=== PATIENT | female | born 1985 | race Caucasian/White ===

== ENCOUNTER 2017-04-18 09:13 | Outpatient (CLI) | payer BC ==
--- NOTE | 2017-04-18 12:39 | Diagnostic Imaging Report ---
Indication: DYSPHAGIA sensation of tightness in throat when swallowing liquids Technique: Patient ingested effervescent granules, thickened and liquid barium, and rapid sequence spot and overhead images were obtained Total fluoroscopy time 2.9 minutes. Total dose area product 4280 dGycm2 Comparison: None Findings: Counseling Program Leader image is unremarkable. With thin liquid barium ingested in the upright position, there is inconstant slight retention of contrast within the vallecula, but this is minimal. Hypopharyngeal motility appears otherwise unremarkable. There is a minimal sliding-type hiatal hernia. Esophageal motility is normal. No gastroesophageal reflux was observed fluoroscopically. A single view of the stomach is unremarkable. Impression: Minimal sliding-type hiatal hernia Minimal retention of thick contrast in the vallecula when swallowing in the upright position, significance doubtful Negative for evidence of stricture or significant motility disorder
[2017-05-09] MEDS ORDERED: NKM (13:39)
== END 2017-04-18 11:13 | disposition home or self-care (01) ==
LOC: RAD 09:13
DX: K44.9 Diaphragmatic hernia without obstruction or gangrene (principal)
CPT/HCPCS: 74220

== ENCOUNTER 2017-05-08 10:08 | Outpatient (CLI) | payer BC ==
[2017-05-09] MEDS ORDERED: NKM (13:39)
== END 2017-05-08 10:38 | disposition home or self-care (01) ==
LOC: PAN 10:08
DX: R10.9 Unspecified abdominal pain (principal)
CPT/HCPCS: 83013

== ENCOUNTER 2017-05-14 09:04 | Day surgery (SDC) | payer BC ==
[~2017-05-14] VITALS: Ht 170.2 cm; Wt 63.5 kg
[2017-05-14] VITALS (8 sets, daily range): BP systolic 97–110; BP diastolic 50–67
[~2017-05-14 09:04] MED LIST: NKM
--- NOTE | 2017-05-14 09:05 | Anethesia Preoperative Eval ---
Anesthesia Pre-op PMH/ROS General Date of Evaluation: May 14, 2017 Time of Evaluation: 09:05 Anesthesiologist: peterson ASA Score: ASA 2 Mallampati Score Class I : Soft palate, uvula, fauces, pillars visible Class II: Soft palate, uvula, fauces visible Class III: Soft palate, base of uvula visible Class IV: Only hard plate visible Mallampati Classification: Class II Surgeon: charline Diagnosis: gerd Surgical Procedure: egd Anesthesia History: none Social History: smoking - nonsmoker Family History: no anesthesia problems Allergies: Coded Allergies: No Known Allergies (Unverified , 05/09/17) Medications: see eMAR Past Medical History Gastrointestinal/Genitourinary: Reports: GERD Anesthesia Pre-op Phys. Exam Physician Exam Last Vital Signs Date Time Temp Pulse Resp B/P (MAP) Pulse Ox O2 Delivery O2 Flow Rate FiO2 05/14/17 09:36 97.5 52 20 103/60 99 Room Air Constitutional: NAD Neurologic: CN 2-12 intact Cardiovascular: RRR Respiratory: CTA Gastrointestinal: S/NT/ND Airway Exam Mallampati Score: Class II MO: full Neck: supple TMD: 2fb ROM: full Teeth: intact Anesthesia Pre-op A/P Labs Labs Test 05/14/17 09:11 Urine HCG, Qualitative Negative Risk Assessment & Plan Assessment: asa2 Plan: mac Status Change Before Surgery: No Pre-Antibiotics Drug: OMAR Lizama May 14, 2017 09:05
--- NOTE | 2017-05-14 10:25 | Pre-Procedure Note/Attestation ---
Pre-Procedure Note/Attestation Complete Prior to Procedure Planned Procedure: not applicable Procedure Narrative: egd Indications for Procedure Pre-Operative Diagnosis: gerd Attestation I attest that I discussed the nature of the procedure; its benefits; risks and complications; and alternatives (and the risks and benefits of such alternatives ), prior to the procedure, with the patient (or the patient's legal liability claims representative). I attest that, if there was a reasonable possibility of needing a blood transfusion, the patient (or the patient's legal liability claims representative) was given the [facility] standardized written summary, pursuant to the [place] Blood Safety Act ([place] Health and Safety Code # 1645, as amended). I attest that I re-evaluated the patient just prior to the surgery and that there has been no change in the patient's H&P, except as documented below: SVEN GORDON May 14, 2017 10:25
--- NOTE | 2017-05-14 10:25 | Short Stay Surgery H&P ---
History of Present Illness History of Present Illness Chief Complaint gerd HPI Shakira Zhu is a 32 year old female who was admitted on for GERD Patient History Allergies: Coded Allergies: No Known Allergies (Unverified , 05/09/17) PAST MEDICAL HISTORY: Past Surgeries: Social History: Medication History Scheduled No Known Medications* (NKM - No Known Medications*), 0 ., (Reported) Review of Systems Cardiovascular: Reports: no symptoms Gastrointestinal: Reports: gastro esophageal reflux disease Genitourinary: Reports: no symptoms Neurologic: Reports: no symptoms Endocrine: Reports: no symptoms Hematologic: Reports: no symptoms Physical Exam Vital Signs Last Vital Signs Date Time Temp Pulse Resp B/P (MAP) Pulse Ox O2 Delivery O2 Flow Rate FiO2 05/14/17 09:36 97.5 52 20 103/60 99 Room Air Labs Laboratory Tests Test 05/14/17 09:11 Urine HCG, Qualitative Negative Skin: normal HENT: normal Heart: normal Lungs: normal Abdomen: normal Extremities: normal Plan Plan of Care egd Final Diagnosis: Attestation Are the patient's medical conditions optimized for surgery? Attestation Response: yes SVEN GORDON May 14, 2017 10:25
[2017-05-14] MEDS ORDERED: Lidocaine 1% MPF 10mg/ml 5ml ONE (11:00)
[2017-05-14] MEDS ORDERED: Propofol 200mg/20ml IV ONE (11:00)
--- NOTE | 2017-05-14 11:23 | Endoscopy Procedure Note ---
Endoscopy Procedure Note Indication for Procedure: gerd Procedures Performed: EGD Operative Findings/Diagnosis: gastritis Specimen: yes Pt Tolerated Procedure Well: Yes Estimated Blood Loss: none Anesthesiologist: lacho Anesthesia: MAC Implant(s) used?: No 50 yrs or older w/o bx or poly: Not Applicable 10yrs. F/U not recommended: Not Applicable SVEN GORDON May 14, 2017 11:23
[2017-05-14] MEDS ORDERED: Midazolam 2mg/2ml Inj IVP PRN (11:30)
[2017-05-14] MEDS ORDERED: Atropine Inj 1mg/10ml Syr IV PRN (11:30)
[2017-05-14] MEDS ORDERED: fentaNYL 100 mcg/2 mL IV PRN (11:30)
[2017-05-14] MEDS ORDERED: DiphenhydrAMINE 50mg/ml Inj IVP PRN (11:30)
--- NOTE | 2017-05-14 11:45 | Immediate Post-Op Evaluation ---
Immediate Post-Op Evalulation Immediate Post-Op Evalulation Procedure: egd Date of Evaluation: May 14, 2017 Time of Evaluation: 11:42 IV Fluids: 550ml 0.9ns Blood Products: none Estimated Blood Loss: negligible Blood Pressure Systolic: 109 Blood Pressure Diastolic: 66 Pulse Rate: 60 Respiratory Rate: 18 O2 Sat by Pulse Oximetry: 99 Temperature (Fahrenheit): 98.2 Pain Score (1-10): 0 Nausea: No Vomiting: No Complications none Patient Status: awake, reacts, patent Hydration Status: adequate Drug: OMAR Lizama May 14, 2017 11:45
--- NOTE | 2017-05-14 11:47 | 48 Hour Post Anesthesia Eval ---
Post Anesthesia Evaluation Procedure: egd Date of Evaluation: May 14, 2017 Time of Evaluation: 11:45 Blood Pressure Systolic: 111 0: 66 Pulse Rate: 59 Respiratory Rate: 18 Temperature (Fahrenheit): 98.2 O2 Sat by Pulse Oximetry: 99 Airway: patent Nausea: No Vomiting: No Pain Intensity: 0 Hydration Status: adequate Cardiopulmonary Status: stable Mental Status/LOC: patient returned to baseline Post-Anesthesia Complications: none Follow-up care needed: N/A OMAR SIMON May 14, 2017 11:47
--- NOTE | 2017-05-14 16:00 | Procedure Note ---
DATE OF PROCEDURE: 05/14/2017 SURGEON: Carlos Hernadez M.D. PROCEDURE: Upper endoscopy with biopsy. ANESTHESIOLOGIST: Per Dr. Manzanares. INSTRUMENT: Olympus adult flexible upper endoscope. INDICATION: GERD. The procedure, risks, benefits, and possible consequences, including hemorrhage, aspiration, perforation and infection, and alternative treatments, were explained to the patient/legal guardian by Dr. Carlos Hernadez and the patient/legal guardian understood and accepted these risks. DESCRIPTION OF PROCEDURE: After informed consent was obtained and the patient was adequately sedated, Olympus upper endoscope was advanced from mouth into the second portion of the duodenum and retroflexion was performed in the stomach. The patient had evidence of diffuse gastritis. Random biopsies from antrum and body were obtained to rule out H. pylori infection. Otherwise, the rest of the endoscopic examination grossly within normal limits. The patient tolerated the procedure very well without any complication. SUMMARY OF FINDINGS: Gastritis, otherwise, normal upper endoscopic examination. RECOMMENDATIONS: Follow up biopsy results and treat accordingly. Carlos Hernadez M.D. DR: Claudette JOB#: [id number] CC:
== END 2017-05-14 12:35 | disposition home or self-care (01) ==
LOC: GAS 09:04
DX: K21.9 Gastro-esophageal reflux disease without esophagitis (principal); K29.50 Unspecified chronic gastritis without bleeding
CPT/HCPCS: 43239; 81025; J2704; 94003; 94150